=== PATIENT | female | born 1955 | race Caucasian/White ===

== ENCOUNTER 2018-06-29 15:05 | Emergency (ER) | payer MEDICAID, OTHER ==
--- NOTE | 2018-06-29 15:16 | EDPHY ---
H & P Stated Complaint: Mechanical fall onto chin - laceration Time Seen by Provider: 06/29/18 15:15 HPI/ROS: HPI: This is a 63-year-old female who presents with Chief Complaint: Mechanical fall, chin laceration Location: Chin Quality: Laceration Duration: Prior to arrival Signs and Symptoms: No bleeding, no radiation, no numbness, no weakness, no tingling, no incontinence, + decreased range of motion, no swelling, + pain, no fever Timing: Acute Severity: 7 out of 10 Context: Patient accidentally tripped over the uneven sidewalk and fell forward hitting her chin on the cement. Denies LOC/head injury/dizziness/nausea /vomiting/amnesia. She reported immediate, constant pain with bleeding that stopped with direct pressure. She was ambulatory at the scene but EMS was called as she was outside of a local business. Patient complains of bilateral posterior neck pain, left superior shoulder pain and left sacroiliac buttock pain. Patient believes that the majority of the impact was on her chin and then she rolled over to her left side. She denies any change in bowel or bladder habits, previous concussions. She reports that her left side of her jaw aches with movement. Takes baby aspirin daily. Unsure of tetanus status. Modifying Factors: None Comment: ROS: A comprehensive 10 system review of systems is otherwise negative aside from elements mentioned in the history of present illness. MEDICAL/SURGICAL/SOCIAL HISTORY: Medical history: Hypothyroidism Surgical history: Denies Social history: Never smoked. . Drinks alcohol socially. CONSTITUTIONAL: Well-developed, well-nourished, adult white female who appears younger than stated age, at bedside. awake and alert, no obvious distress HEENT: chin shows approximately 3.5 cm, superficial, linear laceration on the posterior aspect with no active bleeding. normocephalic, PERRL, EOMI. no globe entrapment, no raccoon eyes. no Heredia signs.Tympanic membranes clear. No tympanic membrane rupture. Nares patent; no septal hematoma. Oropharynx clear, no exudate and moist pink mucosa. No malocclusion. no dental trauma. Airway patent. No lymphadenopathy. NECK: supple, mild mid midline tenderness, bilateral reproducible multiple trigger points trapezius muscle tenderness; flexion 45 degrees, extension 45 degrees, right and left lateral flexion 45 degrees. Cardiovascular: Normal S1/S2, regular rate, regular rhythm, without murmur rub or gallop. PULMONARY/CHEST: Symmetrical and nontender. no crepitus. Clear to auscultation bilaterally. Good air movement. No accessory muscle usage. ABDOMEN: Soft, nondistended, nontender, no ecchymosis, no rebound, no guarding , no peritoneal signs, no masses or organomegaly. No CVAT. PELVIC: no pain with rocking; bilateral hips flexion 125 degrees, extension 30 degrees, with no pain internal rotation and no pain external rotation. BACK: No midline tenderness, no paraspinous spasm, deep tendon reflexes 2/2, no pain with straight leg raise EXTREMITIES: 2/2 pulses, no deformities, no clubbing, no cyanosis or edema. NEUROLOGICAL: no focal neuro deficits. GCS 15. SKIN: Warm and dry, no erythema. no rash. Good capillary refill. Source: Patient Exam Limitations: No limitations - Personal History Current Tetanus Diphtheria and Acellular Pertussis (TDAP): Unsure - Medical/Surgical History Hx Asthma: No Hx Chronic Respiratory Disease: No Hx Diabetes: No Hx Cardiac Disease: No Hx Renal Disease: No Hx Cirrhosis: No Hx Alcoholism: No Hx HIV/AIDS: No Hx Splenectomy or Spleen Trauma: No Other PMH: Denies - Social History Smoking Status: Never smoked Constitutional: Initial Vital Signs Temperature (C) 36.5 C 06/29/18 15:07 Heart Rate 61 06/29/18 15:07 Respiratory Rate 16 06/29/18 15:07 Blood Pressure 169/83 H 06/29/18 15:07 O2 Sat (%) 99 06/29/18 15:07 O2 Delivery Mode Room Air Allergies/Adverse Reactions: No Known Allergies Allergy (Unverified 06/29/18 15:13) Home Medications: Medication Instructions Recorded Cyclobenzaprine [Flexeril 10 MG 10 mg PO Q8 PRN #10 tab 06/29/18 (*)] Levothyroxine 06/29/18 traZODone 06/29/18 Medical Decision Making - Diagnostics Imaging Results: Imaging Impressions Cervical Spine CT 06/29/18 15:26 Impression: 1. No acute posttraumatic abnormality identified. If there is persistent pain or neurologic deficit, consider MRI and/or flexion and extension views if clinically indicated. 2. Multilevel degenerative change and spondylolistheses. Findings discussed with Vita Gao on 06/29/2018 at 15:57. Head CT 06/29/18 15:26 Impression: No acute intracranial findings. Findings discussed with Vita Gao 06/29/2018 at 15:57. Pelvis X-Ray 06/29/18 15:31 Impression: No acute osseous findings. Shoulder X-Ray 06/29/18 15:31 Impression: Mild degenerative change acromioclavicular joint. No evidence for acute osseous abnormality left shoulder. Procedures: Procedure: Laceration repair. Verbal consent was obtained from the patient. The 3.5 cm, simple, linear laceration on the chin was anesthetized in the usual fashion using 4 mL of 1% lidocaine without epinephrine. The wound was irrigated, draped and explored to its base with a gloved finger. There were no deep structures involved. No tendon injury was identified. The wound was repaired with #3, 5-0 Prolene in a simple interrupted pattern. Steri-Strips applied. The procedure was performed by myself. ED Course/Re-evaluation: Vital signs reviewed and show elevated blood pressure. Fall was mechanical in nature. Based on nexus protocol, head CT scan ordered Based on nexus protocol of cervical midline tenderness and trauma, cervical CT scan ordered Patient also had pelvic x-ray and left shoulder x-ray ordered No neurological deficits. No signs of concussion. No LOC. 1600: Called by Radiology that head CT scan shows no acute intracranial process. Cervical CT scan shows no acute cervical process but does show multilevel [id number] degenerative disc disease and spondylolisthesis. Tetanus booster given. Local anesthesia provided and copiously irrigated Laceration repaired with # 3 nonabsorbable sutures Steri-Strips and clean sterile dressing applied Verbal and written wound care instructions provided 1630: Pelvic x-ray my read shows no fracture, dislocation. Left shoulder x-ray my read shows no significant degenerative changes, AC separation, fracture, dislocation. No signs of neurovascular compromise/tenting of skin/compartment syndrome/ extremities and joints examined above and below area of concern and are neurovascularly intact. This patient was seen under the supervision of my secondary supervising physician. I evaluated and cared for this patient with attending. Differential Diagnosis: Head injury including but not limited to concussion, skull fracture, intraparenchymal contusion, subarachnoid, subdural and epidural hematoma. - Data Points Medications Given: Discontinued Medications Diphtheria/Tetanus/Acell Pertussis (Boostrix) 0.5 ml IM .ONCE ONE Stop: 06/29/18 15:36 Last Admin: 06/29/18 16:53 Dose: 0.5 ml Departure - Departure Disposition: Home, Routine, Self-Care Clinical Impression: Degenerative disc disease, cervical, Cervical spondylolysis Laceration of chin without complication Qualifiers: Encounter type: initial encounter Qualified Code(s): S01.81XA - Laceration without foreign body of other part of head, initial encounter Cervical muscle strain Qualifiers: Encounter type: initial encounter Qualified Code(s): S16.1XXA - Strain of muscle, fascia and tendon at neck level, initial encounter Closed head injury without concussion Qualifiers: Encounter type: initial encounter Qualified Code(s): S09.90XA - Unspecified injury of head, initial encounter Condition: Good Instructions: Cervical Strain (ED), Care For Your Stitches (ED), Head Injury ( ED), Facial Laceration (ED) Additional Instructions: Keep the dressing dry and in place for 48 hours. After 48 hours, you may remove the dressing; wash the site daily with mild soap and water; then pat dry. Allow the Steri-Strips to fall off on their own. Once the Steri-Strips fall off, apply topical antibiotic ointment and keep covered with sterile dressing until fully healed. Do not soak in a bathtub or go swimming until sutures are removed. Take Tylenol 650 mg every 4 hours and/or Ibuprofen 600 mg every 8 hours with food as needed for pain. Take Flexeril every 8 hr as needed for muscle spasms. If at any time you request scar revision in the next 3-6 months, follow-up with plastic surgery. Wound Care Follow-Up: Removal of sutures in [ 7 ] days. Suture removal is complimentary in uncomplicated cases. Infection or abnormal findings would require reevaluation by the MD. In that case, you may be billed. You sustained a closed head injury and it is recommended that you observe concussion precautions for 12 hr from the time of injury. Consume a minimum of 8-10 glasses of water or electrolyte fluid replacement drinks that include Gatorade, Powerade, Pedialyte. Please follow-up with primary care provider in 5-7 days. If symptoms last longer than 1-2 weeks, please follow-up with Dr. Conti in [facility]. Return to the ER immediately if you have progressive headaches, neurologic deficits, gait abnormality, visual disturbance, slurred speech, or any other symptom that concerns you. Follow-up with Ophthalmology regarding your history of cataracts and lens replacements status. Referrals: Bob Kilgore MD [Medical Doctor] - Follow Up Only If Needed Obed Simon MD [Medical Doctor] - Follow Up Only If Needed Prescriptions: Cyclobenzaprine [Flexeril 10 MG (*)] 10 mg PO Q8 PRN #10 tab PRN Reason: Spasms
[2018-06-29] MEDS ORDERED: TDAP ADULT 0.5 ML INJ (BOOSTRIX) IM ONE (15:35)
[2018-06-29 17:06] VITALS: BP 142/70
== END 2018-06-29 17:07 | disposition home or self-care (01) ==
PROC: 0HQ1XZZ Repair Face Skin, External Approach (ICD-10-PCS; principal; 2018-06-29)
DX: S01.81XA Laceration without foreign body of other part of head, initial encounter (principal); S16.1XXA Strain of muscle, fascia and tendon at neck level, initial encounter; M50.31 Other cervical disc degeneration, high cervical region; M43.02 Spondylolysis, cervical region; M19.012 Primary osteoarthritis, left shoulder; Z23 Encounter for immunization; W01.198A Fall on same level from slipping, tripping and stumbling with subsequent striking against other object, initial encounter; Y92.480 Sidewalk as the place of occurrence of the external cause